=== PATIENT | male | born 1970 | race Caucasian/White ===

== ENCOUNTER 2021-10-21 10:30 | Outpatient (REF) | payer OTHER, SELFPAY ==
[2021-10-21 14:12] LABS: Hematocrit 43.6 % (42.0-52.0); Hemoglobin 14.4 g/dl (14.0-18.0); Mean Corpuscular Hemoglobin 32.5 pg (27.0-33.0); Mean Corpuscular Volume 98.4 fL (80.0-98.0); Mean Platelet Volume 10.7 fL (9.4-12.4); Platelet Count 334 X10*3/uL (160-400); Red Blood Count 4.43 X10*6/uL (4.60-5.80); Red Cell Distribution Width 11.9 % (11.0-16.0); White Blood Count 9.2 X10*3/uL (4.8-10.8)
[2021-10-21 14:40] LABS: Alanine Aminotransferase 24 U/L (0-40); Albumin Level 4.4 g/dL (3.5-5.0); Alkaline Phosphatase 63 U/L (39-117); Anion Gap 17 (12-20); Aspartate Amino Transferase 21 U/L (5-37); Bilirubin Total 0.7 mg/dL (0.0-1.0); Blood Urea Nitrogen 13 mg/dL (9-16); Calcium 9.4 mg/dL (8.4-10.2); Carbon Dioxide 25 mmol/L (22-29); Chloride 103 mmol/L (96-108); Cholesterol 209 mg/dL; Estimated Glomerular Filt Rate > 60; Glucose Fasting 97 mg/dL (60-99); HDL Cholesterol 63 mg/dL; LDL Cholesterol Calculated 131 mg/dl; Potassium 4.5 mmol/L (3.3-5.1); Sodium 140 mmol/L (135-145); Total Protein 7.4 g/dL (6.5-8.0); Triglycerides 78 mg/dL
[2021-10-21 14:51] LABS: TSH reflex Free T4 0.75 uIU/mL (0.32-4.0)
== END 2021-10-21 10:31 | disposition home or self-care (01) ==
LOC: HO.WFDLDS 10:30
PROVIDERS: Visit Provider Hospitalist
DX: Z00.01 Encounter for general adult medical examination with abnormal findings (principal)
CPT/HCPCS: 36415; 80053; 80061; 84443; 85027

== ENCOUNTER 2023-09-21 06:55 | Day surgery (SDC) | payer OTHER, SELFPAY ==
--- NOTE | 2023-09-21 08:06 | HO.ANESPROP2 ---
[facility] Active Problems Active Problems: All Active Problems (Updated 02/18/23 @ 12:32 by Fatou Lindsay NP) Colon cancer screening (Acute) Prostate cancer screening (Acute) Obesity (BMI 30-39.9) (Acute) Right anterior knee pain (Acute) Right shoulder pain (Acute) Normal physical exam (Acute) Annual visit for general adult medical examination with abnormal findings (Acute) Strain of wrist, left (Acute) Past Medical History Medical History Right knee meniscal tear Rupture, spleen Family History Family History Mother Stroke Father Bowel disease Family history of problems with anesthesia: No Surgical History Surgical History H/O rotator cuff surgery History of Problems with Anesthesia: No Social History Social History Housing: House Alcohol intake: current Alcohol intake frequency: 0-2 drinks per day Alcohol type: beer Patient Tobacco Use Status: Never used Tobacco e-Cigarette/Vaping Use: Never Used Advance Directives: No Advance Directives Information Provided: Yes service: No Current occupational status: employed Current occupation: delivery driver/customer service Cognitive needs: No Hearing needs: No Vision needs: No Meds Allergies Allergy/AdvReac Type Severity Reaction Status Date / Time No Known Allergies Allergy Verified 02/18/23 12:06 Exam Exam Date and Time: September 21, 2023 0806 Height,Weight and Vital Signs: Height 5 ft 10 in Weight 94.801 kg Airway Mallampati Class: III TM Dist: >3cm Neck ROM: Full Assessment and Plan Assessment Anesthesia Assessment: Anesthesia Plan Discussed and Chart Reviewed Final Anesthetic Review Family History of Problems with Anesthesia: No History of Problems with Anesthesia: No NPO: Yes ASA Class: II Final Preanesthetic Review: No Changes in Pt Med Stat, Meds/Allgs Chart Reviewed, Consent Obtained/Reviewed and Anes Risks/Benef Reviewed Patient Risk: Low Procedure Risk: Low Anesthetic Plan Anesthetic Plan: MAC: Disposition: Standard PACU
[2023-09-21 08:09] VITALS: BP 165/89; PULSE 72; RESP 18; TEMP 36.4; O2SAT 98
--- NOTE | 2023-09-21 08:20 | MHC.SHP ---
Pre-Procedural Eval Section A Date of Service: 09/21/23 The patient is an INPATIENT: No The History & Physical has been completed within 30 days and I have reviewed it.: No Section B Chief Complaint: Encounter for screening for malignant neoplasm of Relevant Family History (Specify if Yes): No Relevant Social History: None Present Medications: see Short Stay Collaborative assessment Medical History: Significant History (Right knee meniscal tear Rupture, spleen) History of Previous Operations: Relevant previous surgery/procedure and date(s) (H/O rotator cuff surgery) Allergies: Allergies Allergy/AdvReac Type Severity Reaction Status Date / Time No Known Allergies Allergy Verified 02/18/23 12:06 Review of Systems Sugical H&P ROS: Negative: Constitution, Cardiovascular, Respiratory and Gastrointestinal Exam Surgical H&P Exam: Normal: Heart, Normal: Lungs, Normal: Extremities and Normal: Abdomen Plan Diagnosis/Plan: Unchanged I have reviewed the history and physical and performed a pertinent physical examination on my patient. No changes have occurred unless specified. Time Spent With Patient Time: Total time managing care of this patient today ____ minutes.
[2023-09-21] MEDS: Lactated Ringers 1,000 ML 100 ML IVCONT (08:23)
--- NOTE | 2023-09-21 08:39 | W.PM.OPN ---
Operative Note Operative Note Date of Service: 09/21/23 Narrative: COLONOSCOPY TILL CECUM WITH BIOPSIES Pre-op diagnosis: Colon cancer screening - direct access (1st colonoscopy) Post-op diagnosis:?Colon polyps, diverticulosis Endoscopist:? Enzo Hough MD Anesthesia:?MAC Consent: Indications for the procedure and potential complications of bleeding, perforation, reaction to medications and missed diagnosis were discussed with the patient and informed consent was obtained. Instrument: Olympus PCF H 190 L variable stiffness pediatric colonoscope Monitoring: Vital signs and clinical assessment, intermittent blood pressure monitoring, continuous EKG monitoring, Pulse oximetry and Carbon Dioxide monitoring were done throughout the procedure. Please see anesthesia flowsheet. Colon withdrawl time was 13 minutes. Procedure: The patient was placed in the left lateral decubitis position and pre-procedure medications were administered. After a digital rectal examination of the ano-rectum, the video colonoscope was inserted into the rectum and advanced through the colon to the cecum. The colonoscope was slowly withdrawn in a retrograde panoramic fashion and the colon mucosa was carefully examined including a retroflexed view of the rectum. Findings and interventions are described below. Procedure Difficulty: There was narrowing at 25 to 30 cms due to severe diverticulosis which was navigated with some difficulty Findings: Terminal Ileum: Not evaluated Cecum: A 3-4 mm diminutive appearing polyps - removed with a cold biopsy Ascending Colon: Scattered moderate diverticulosis throughout the colon Transverse Colon: A 4-5 mm sessile polyp - removed with a cold biopsy. Scattered moderate diverticulosis throughout the colon Descending Colon: Scattered moderate diverticulosis throughout the colon Sigmoid Colon: Severe diverticulosis with luminal narrowing Rectum: Normal Ano-rectum: Moderate internal hemorrhoids Colon preparation: Good after some irrigation Impression and Post Procedure Diagnosis: Colonoscopy Findings: Two small polyps removed Moderate to severe diverticulosis seen in the entire colon Plan: I will send a letter with pathology results Repeat Colonoscopy interval based on path results - in 5 years if polyps are adenomatous and 10 years if polyps are hyperplastic. Above findings were reviewed with the patient and colon polyps and diverticulosis handouts were given in the discharge area
[2023-09-21 09:23] VITALS: BP 115/70; PULSE 80; RESP 16; TEMP 36.6; O2SAT 94
[2023-09-21 09:38] VITALS: BP 132/80; PULSE 72; RESP 16; TEMP 36.3; O2SAT 96
== END 2023-09-21 10:25 | disposition home or self-care (01) ==
PROVIDERS: PCP Family Medicine; Visit Provider Internal Medicine Gastroenterology
PROC: 0DJD8ZZ Inspection of Lower Intestinal Tract, Via Natural or Artificial Opening Endoscopic (ICD-10-PCS; CPT 45378; principal; 2023-09-21 08:30)
DX: Z12.11 Encounter for screening for malignant neoplasm of colon (principal); D12.3 Benign neoplasm of transverse colon; D12.0 Benign neoplasm of cecum; K57.30 Diverticulosis of large intestine without perforation or abscess without bleeding; K56.699 Other intestinal obstruction unspecified as to partial versus complete obstruction
CPT/HCPCS: 45380; 88305; J2250

== ENCOUNTER → 2023-09-21 06:55 | Outpatient (BNV) | payer OTHER, SELFPAY | PROVIDERS: PCP Family Medicine; Visit Provider Internal Medicine Gastroenterology | DX: Z12.11 Encounter for screening for malignant neoplasm of colon (principal); K57.30 Diverticulosis of large intestine without perforation or abscess without bleeding; D12.0 Benign neoplasm of cecum; D12.3 Benign neoplasm of transverse colon; K64.8 Other hemorrhoids | CPT/HCPCS: 45380 ==

== ENCOUNTER 2025-09-26 08:19 | Emergency (ER) | payer OTHER, SELFPAY ==
--- NOTE | ~2025-09-26 | XR_ITS ---
EXAMINATION: XR TIBIA AND FIBULA, RIGHT CLINICAL INFORMATION: foreign object COMPARISON: None available. TECHNIQUE: AP and lateral views of the right tibia and fibula were obtained. FINDINGS: Bone alignment is normal. No fracture or dislocation. Mild degenerative changes at the femoral tibial patellofemoral joints with small osteophytes. No soft tissue foreign body. XR/XR tibia fibula RT 2V IMPRESSION: Mild degenerative changes at the knee. No soft tissue foreign body. Electronically signed by: Rhonda Melendez MD 09/26/2025 08:57 AM EST
--- NOTE | ~2025-09-26 | XR_ITS ---
EXAMINATION: XR ANKLE, RIGHT CLINICAL INFORMATION: Rule out foreign body. COMPARISON: None available. TECHNIQUE: AP, lateral, and mortise views of the right ankle. FINDINGS: There is no fracture, dislocation, or suspicious bone lesion. There is normal alignment. The ankle mortise is intact. The talar dome is normal. The subtalar joints and calcaneus appear normal. There is no ankle joint effusion. Soft tissues appear normal without evidence of radiopaque foreign body. XR/XR ankle RT min 3V IMPRESSION: Normal right ankle. Electronically signed by: Maciej Simms MD 09/26/2025 08:56 AM [facility]
[2025-09-26 08:26] VITALS: BP 179/98; PULSE 94; RESP 20; TEMP 36.4; O2SAT 94; BMI 29.6
--- NOTE | 2025-09-26 09:46 | ED_ITS ---
HPI - General Adult General Chief complaint: Wound/Laceration Stated complaint: r leg lac, glass bottle-- work inj Time Seen by Provider: 09/26/25 08:48 Source: patient Mode of arrival: ambulatory Limitations: no limitations History of Present Illness ED Provider: SOLEDAD CHO PA-C HPI narrative: 55 year old male presents to the ED today for evaluation of laceration to right lower leg occurring at approximately 0730 today. He sustained the laceration while carrying a box of glass liquor bottles at work. Reports the bottom of the box gave out, causing the bottles to shatter on the ground. He did not feel anything cut him however looked down and noticed that his leg was bleeding. He then visualized with a laceration to the medial aspect of his right lower leg. His employer advised to come to the ED for stitches. His last tetanus was in 2018. No thinners. Bleeding controlled. Related Data Allergies Allergy/AdvReac Type Severity Reaction Status Date / Time No Known Allergies Allergy Verified 09/26/25 08:33 Review of Systems Review of Systems: Yes all other systems are reviewed and are negative [facility] Past Medical History Attestation statement: The following information was validated with the patient. Source: old records reviewed and nursing notes reviewed Medical History Rupture, spleen Right knee meniscal tear Surgical History H/O rotator cuff surgery Family History Family History Mother Stroke Father Bowel disease Social History Social History Housing: House Alcohol intake: current Alcohol intake frequency: 0-2 drinks per day Alcohol type: beer Patient Tobacco Use Status: Never used Tobacco e-Cigarette/Vaping Use: Never Used Advance Directives: No Advance Directives Information Provided: No Do you have a plan to hurt others: No Plan service: No Current occupational status: employed Current occupation: delivery and mail sorter Cognitive needs: No Hearing needs: No Vision needs: No Physical Exam ED Vital Signs: Vital Signs - 24 hr 09/26/25 08:26 09/26/25 10:29 Temperature 97.6 F 97.6 F Pulse Rate 94 94 Respiratory Rate 20 20 Blood Pressure 179/98 H 179/98 H Pulse Oximetry 94 94 Oxygen Delivery Method Room Air Room Air BMI result Body Mass Index 29.6 hypertensive, vitals are otherwise wnl General: Well appearing, in no acute distress. Skin: Warm, dry, intact. No rashes or lesions. Head: Normocephalic, atraumatic. EENT: Hearing is intact b/l. Conjunctiva clear. Sclera is anicteric. PERRLA. EOM intact. Moist mucous membranes.? Cardiac: Chest wall symmetric. RRR Lungs: Normal respiratory effort without accessory muscle use. CTA bilaterally Back: No midline spinous or paraspinal tenderness. No step off deformity. Ext: +there is a 5 cm superficial linear laceration noted to the medial aspect of the right lower leg, no active bleeding, no pulsing, no FB. no involvement of deeper structures. mildly ttp, no palpable deformity. sensation intact. nv intact distally. Neuro: AOx3. Normal speech. Ambulating with steady gait. Psych: Appropriate mood and affect. Responds appropriately to questions. Course Course Course Narrative: xrays of right tib/fib, ankle do not demonstrate retained FB. tdap updated. obtained verbal consent from patient for suture repair. laceration thoroughly cleansed with saline and iodine. 6 sutures placed under local anesthetic -see procedure note. patient tolerated well. Patient has remained stable throughout ED visit today. Discussed worrisome signs and symptoms and when to return to the ED. All questions answered at this time. Patient is agreeable with disposition and stable for discharge. Medications Administered Discontinued Medications Generic Name Dose Route Start Last Admin Trade Name Lázaroq PRN Reason Stop Dose Admin Diphtheria/Tetanus/Acell Pertussis 0.5 ml 09/26/25 09:21 09/26/25 10:21 Diphth,Pertus(Acell),Tet Adult 0.5 Ml Syringe IM 09/26/25 09:22 0.5 ml .ONCE ONE Administration Lidocaine HCl 5 ml 09/26/25 09:32 09/26/25 09:51 Lidocaine Hcl 1 % Mpf 5 Ml Vial INFILTRATI 09/26/25 09:33 5 ml ONCE ONE Administration Procedures Laceration Laceration 1: Site: lower extremity Side (If applicable): right Size (cm): 5 Description: linear Depth: simple, single layer Local Anesthetic: lidocaine 1% Amount of anesthesia used (mL): 5 Pre-repair: wound explored Skin layer closed with: nylon Size (cm): 3-0 Number of sutures: 6 Technique: simple, interrupted Medical Decision Making Medical Decision Making MDM Narrative: 55 year old male presents to the ED today for evaluation of laceration to right lower leg occurring at approximately 0730 today. Patient is hypertensive, vitals are otherwise WNL. On exam, there is a 5 cm superficial linear laceration noted to the medial aspect of the right lower leg, no active bleeding, no pulsing, no FB. no involvement of deeper structures. mildly ttp, no palpable deformity. sensation intact. NV intact distally. Differential diagnosis includes soft tissue injury, laceration, abrasion, retained fb Plan for xrays, suture repair, tdap booster and re-evaluation. Differential Diagnosis Differential Diagnoses: The differential diagnosis associated with the presentation includes as above. Admission/Observation not indicated. Independent Interpretation I performed an independent interpretation of an: Plain X-Ray Interpretation: xrs right tib/fib and ankle without retained glass Radiology Impression Discussion of test interpretation with radiology: I have reviewed the radiologist's reading. Radiologist Impression: Procedure(s): XR tibia fibula RT 2V Accession Number(s): [id number] cc: Generic ED Physician; Jeanette Schuler CNP~ Reason for Exam: foreign object EXAMINATION: XR TIBIA AND FIBULA, RIGHT CLINICAL INFORMATION: foreign object COMPARISON: None available. TECHNIQUE: AP and lateral views of the right tibia and fibula were obtained. FINDINGS: Bone alignment is normal. No fracture or dislocation. Mild degenerative changes at the femoral tibial patellofemoral joints with small osteophytes. No soft tissue foreign body. XR/XR tibia fibula RT 2V IMPRESSION: Mild degenerative changes at the knee. No soft tissue foreign body. Electronically signed by: Rhonda Melendez MD 09/26/2025 08:57 AM EST Procedure(s): XR ankle RT min 3V Accession Number(s): [id number] cc: Generic ED Physician; Jeanette Schuler CNP~ Reason for Exam: foreign EXAMINATION: XR ANKLE, RIGHT CLINICAL INFORMATION: Rule out foreign body. COMPARISON: None available. TECHNIQUE: AP, lateral, and mortise views of the right ankle. FINDINGS: There is no fracture, dislocation, or suspicious bone lesion. There is normal alignment. The ankle mortise is intact. The talar dome is normal. The subtalar joints and calcaneus appear normal. There is no ankle joint effusion. Soft tissues appear normal without evidence of radiopaque foreign body. XR/XR ankle RT min 3V IMPRESSION: Normal right ankle. Electronically signed by: Maciej Simms MD 09/26/2025 08:56 AM [facility] External Record Review External record reviewed: Inpatient record Prescription Management I considered prescription management with: Pain Medication Social Determinants Patient?s care significantly limited by Social Determinants of Health including: Other Social Determinant of Health Critical Care Time Critical Care Time Critical Care Time: No Discharge Plan Discharge Clinical Impression: Laceration of leg, right Patient Disposition: Home, Self-Care Instructions: Laceration (ED) Additional Instructions: You have been evaluated in the Emergency Department today for a laceration to your right leg Your laceration was repaired in the ED with 6 sutures.? Your tetanus vaccination was also updated and will be valid for 5-10 years. Please keep the area surrounding the laceration clean and dry. Do not get the area wet for 24 hours. After 24 hours, you may clean the area with a non-scented soap and pat to dry. Please keep the area out of the sunlight for the next 6 months to help prevent scarring.? If you develop redness or swelling at the site of your laceration or note any discharge/ fluid coming from the laceration, please come back to the ER for a wound check. I recommend you take 600mg ibuprofen every 6 hours or tylenol 650mg every 6 hours as needed for pain. If needed, you can alternate these medications so that you take one medication every 3 hours. For example, at noon take ibuprofen, then at 3pm take tylenol, then at 6pm take ibuprofen. Please follow up with your primary care physician in 7-10 days for suture removal. You may also return to the ER or another urgent care facility for this service. Return to the Emergency Department if you experience discharge from your lac eration, redness around your laceration, warmth around your laceration, fever, vomiting, numbness, tingling, or any other concerning symptoms. In the case of an emergency call 911. As this was a work-related injury, you have been provided with a referral to [facility] for follow up. Call their office. Referrals: [facility] [Outside] Jeanette Schuler CNP [Primary Care Provider, Internal Medicine] Stand Alone Forms: Work/School Release Interventions: ED Discharge Assessment Last Done: 09/26/25 10:29 Discharge Date/Time: 09/26/25 10:29 Print Language: Tajik
[2025-09-26] MEDS: Lidocaine HCl 1 % MPF 5 ML VIAL INFILTRATI (09:51)
[2025-09-26] MEDS: Diphth,Pertus(ACell),Tet Adult 0.5 ML SYRINGE IM (10:21)
[2025-09-26 10:29] VITALS: BP 179/98; PULSE 94; RESP 20; TEMP 36.4; O2SAT 94
== END 2025-09-26 10:29 | disposition home or self-care (01) ==
PROVIDERS: Emergency Provider Emergency Medicine; PCP Nurse Practitioner Family
DX: S81.811A Laceration without foreign body, right lower leg, initial encounter (principal); W25.XXXA Contact with sharp glass, initial encounter; Y93.01 Activity, walking, marching and hiking; Y92.69 Other specified industrial and construction area as the place of occurrence of the external cause; Y99.0 Civilian activity done for income or pay; Z23 Encounter for immunization
CPT/HCPCS: 12002; 73590; 73610; 90471; 90715; 99282; 99284; J2003

== ENCOUNTER → 2025-09-26 08:39 | Outpatient (BNV) | payer OTHER, SELFPAY | PROVIDERS: Emergency Provider Emergency Medicine; PCP Nurse Practitioner Family; Visit Provider Radiology Diagnostic Radiology | DX: S81.801A Unspecified open wound, right lower leg, initial encounter (principal); W25.XXXA Contact with sharp glass, initial encounter | CPT/HCPCS: 73590; 73610 ==